=== PATIENT | female | born 1980 | race Caucasian/White ===

== ENCOUNTER 2021-06-26 15:12 | Outpatient (CLI) | payer BC | END 2021-06-26 15:13 | disposition home or self-care (01) | LOC: CSHMAMMO 15:12 | PROVIDERS: ATTEND Family Medicine | DX: Z12.31 Encounter for screening mammogram for malignant neoplasm of breast (principal) | CPT/HCPCS: 77063; 77067 ==

== ENCOUNTER 2022-06-30 09:22 | Outpatient (CLI) | payer BC | END 2022-06-30 09:23 | disposition home or self-care (01) | LOC: CSHMAMMO 09:22 | PROVIDERS: ATTEND Family Medicine | DX: Z12.31 Encounter for screening mammogram for malignant neoplasm of breast (principal) | CPT/HCPCS: 77063; 77067 ==

== ENCOUNTER 2023-07-07 09:50 | Outpatient (CLI) | payer BC | END 2023-07-07 09:51 | disposition home or self-care (01) | LOC: CSHMAMMO 09:50 | PROVIDERS: ATTEND Family Medicine | DX: Z12.31 Encounter for screening mammogram for malignant neoplasm of breast (principal) | CPT/HCPCS: 77063; 77067 ==

== ENCOUNTER 2024-06-13 11:10 | Day surgery (SDC) | payer BC ==
[2024-06-11 08:28] VITALS: BMI 27.3
[2024-06-11 08:37] LABS: Hematocrit 41.2 % (34.9-44.5); Hemoglobin 13.5 g/dL (12.0-15.5); Mean Corpuscular HGB CONC 32.8 g/dL (32.0-36.0); Mean Corpuscular Hemoglobin 29.3 pg (27.0-33.0); Mean Corpuscular Volume 89.6 fL (81.6-98.3); Mean Platelet Volume 11.1 fL (7.4-10.4); Platelet Count 304 10x3/uL (150-450); RBC Distribution Width 12.8 % (11.5-14.5); White Blood Cell (WBC) Count 6.6 10x3/uL (3.5-10.5)
[2024-06-11 08:56] LABS: BHCG - Serum Negative (NEGATIVE); Pregs Control Background? CLEAR/WHITE (CLR/WHITE); Pregs Control Bar Appear? YES (CONTROL BAR)
[2024-06-13] MEDS ORDERED: Famotidine/PF 20 mg/2ml Vial ONE (12:43)
[2024-06-13] MEDS ORDERED: Bupivacaine HCl 0.5%/Epinephrine 1:200,000/PF 30 ml Vial ONE (12:43)
[2024-06-13] MEDS ORDERED: Gabapentin 300 MG CAP ONE (12:44)
[2024-06-13] MEDS ORDERED: CeleCOXIB 100 MG CAP ONE (12:44)
[2024-06-13] MEDS ORDERED: SUGAMMADEX SODIUM 200 MG/2 ML VIAL ONE (12:45)
[2024-06-13] MEDS ORDERED: Lidocaine 2% PF 5 ML VIAL ONE (12:45)
[2024-06-13] MEDS ORDERED: Dexamethasone 4 mg/ml Vial ONE (12:45)
[2024-06-13] MEDS ORDERED: PROPOFOL 20 ML ONE (12:45)
[2024-06-13] MEDS ORDERED: Ondansetron PF 4 MG/2 ML Vial ONE ×2 (12:45→17:54)
[2024-06-13] MEDS ORDERED: Rocuronium Bromide 10 MG/ML (10ML VIAL) ONE (12:45)
[2024-06-13] MEDS ORDERED: fentaNYL 50 mcg/mL 1 mL Vial ONE (12:46)
[2024-06-13] MEDS ORDERED: CEFAZOLIN 2 GM VIAL ONE (13:12)
[2024-06-13] MEDS ORDERED: PHENYLEPHRINE-NS 100 MCG/ML 10 ML SYRINGE ONE (13:47)
[2024-06-13] MEDS ORDERED: ePHEDrine Sulfate 50 MG/10 ML VIAL ONE (13:52)
[2024-06-13] MEDS ORDERED: Meperidine HCl/PF 25 MG (1 mL) VIAL ONE (16:03)
== END 2024-06-13 18:20 | disposition home or self-care (01) ==
LOC: CSHSDC 11:10
PROVIDERS: ATTEND Obstetrics & Gynecology
PROC: 0UN14ZZ Release Left Ovary, Percutaneous Endoscopic Approach (ICD-10-PCS; principal; 2024-06-13)
PROC: 0UT14ZZ Resection of Left Ovary, Percutaneous Endoscopic Approach (ICD-10-PCS; principal; 2024-06-13)
PROC: 0UT94ZZ Resection of Uterus, Percutaneous Endoscopic Approach (ICD-10-PCS; principal; 2024-06-13)
PROC: 0UT74ZZ Resection of Bilateral Fallopian Tubes, Percutaneous Endoscopic Approach (ICD-10-PCS; principal; 2024-06-13)
DX: N73.6 Female pelvic peritoneal adhesions (postinfective) (principal); N72 Inflammatory disease of cervix uteri; N85.00 Endometrial hyperplasia, unspecified; N80.03 Adenomyosis of the uterus; N83.8 Other noninflammatory disorders of ovary, fallopian tube and broad ligament; D64.9 Anemia, unspecified; K21.9 Gastro-esophageal reflux disease without esophagitis; Z98.890 Other specified postprocedural states; Z79.899 Other long term (current) drug therapy
CPT/HCPCS: 36415; 84703; 85027; 86850; 86900; 86901; 88307; J1100; J2175; J2405; J2704; J3010; J3490; S2900